=== PATIENT | male | born 2000 | race African-American/Black ===

== ENCOUNTER 2021-10-23 17:53 | Emergency (ER) | payer MEDICAID ==
[~2021-10-23] VITALS: Ht 182.9 cm; Wt 109.0 kg
[2021-10-23] MEDS ORDERED: IBUP-2030 PO (22:33)
[2021-10-23] MEDS ORDERED: AMOX-494 PO (22:33)
[2021-10-23] MEDS ORDERED: KETOROLAC 60MG/2ML VIAL IM STA (22:48)
[2021-10-23 23:59] VITALS: BP 137/89
== END 2021-10-23 23:29 | disposition home or self-care (01) ==
LOC: ER 17:53
DX: K02.9 Dental caries, unspecified (principal)
CPT/HCPCS: 96372; 99283; J1885